=== PATIENT | male | born 2000 | race Caucasian/White ===

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

== ENCOUNTER → 2022-05-24 | Outpatient (CLI) | payer OTHER ==
[~2022-05-24] MED LIST changes: +BENADRYL ALLERG25 M5 PO; +KENALOG 0.5% CR15 GM T; +PREDNISONE50 MG PO
== END | disposition home or self-care (01) ==
LOC: RAD 11:45
PROVIDERS: ATTEND Nurse Practitioner Family
DX: R10.33 Periumbilical pain (principal)

== ENCOUNTER → 2022-06-08 | Outpatient (CLI) | payer OTHER | END | disposition home or self-care (01) | LOC: CT 08:00 | PROVIDERS: ATTEND Nurse Practitioner | DX: R52 Pain, unspecified (principal) ==

== ENCOUNTER 2023-07-21 22:34 | Emergency (ER) | payer OTHER ==
[~2023-07-21] VITALS: Ht 172.7 cm; Wt 68.0 kg
[2023-07-21] MEDS ORDERED: SODIUM CHLORIDE 0.9% 1,000 ML IV ONE (22:50)
[2023-07-21] MEDS ORDERED: Ketorolac Tromethamine 30 MG/ML VIAL IV ONE (22:50)
[2023-07-21 23:03] LABS: BASO % 0.3 % (0.0-1.0); EOS # 0.1 10*3/uL (0.0-0.4); EOS % 0.6 % (1.0-4.0); LYMPH # 2.9 10*3/uL (1.3-4.4); LYMPH % 25.3 % (27.0-41.0); MEAN CELL VOLUME 93.3 fl (80.0-94.0); MEAN CORPUSCULAR HGB 30.4 pg (27.0-31.0); MEAN CORPUSCULAR HGB CONC 32.6 g/dl (33.0-37.0); MEAN PLATELET VOLUME 8.9 fl (9.6-12.3); MONO # 1.2 10*3/uL (0.1-1.0); MONO % 10.4 % (3.0-9.0); NEUT # 7.3 10*3/uL (2.3-7.9); NEUT % 63.3 % (47.0-73.0); PLATELET COUNT AUTOMATED 251 10*3/uL (130-400); RED BLOOD COUNT 4.61 10*6/uL (4.50-5.90); RED CELL DISTRI WIDTH 11.8 % (0-14.5); WHITE BLOOD COUNT 11.5 10*3/uL (4.8-10.8)
[2023-07-21 23:24] LABS: ALKALINE PHOSPHATASE 85 U/L (46-116); BUN 15 mg/dl (9-23); CHLORIDE 103 mmol/L (98-107); LIPASE 31 U/L (12-53); POTASSIUM 3.5 mmol/L (3.4-5.1); SGPT/ALT 13 U/L (5-49); TOTAL PROTEIN 7.4 gm/dL (6.0-8.0)
[2023-07-21] MEDS ORDERED: Metoclopramide Hydrochloride 10 MG/2 ML AMP IV ONE (23:35)
[2023-07-21] MEDS ORDERED: diphenhydrAMINE hydrochloride 50 MG/ML VIAL IV ONE (23:35)
[2023-07-21] MEDS ORDERED: Tamsulosin Hydrochloride 0.4 MG CAP PO ONE (23:35)
[2023-07-22 00:29] LABS: BILIRUBIN Negative (Negative); BLOOD 3+ (Negative); CLARITY Clear (Clear); COLOR Yellow (Yellow); GLUCOSE Negative (Negative); KETONE 1+ (Negative); LEUKO ESTERASE Negative (Negative); NITRITE Negative (Negative); SPECIFIC GRAVITY >= 1.030 (1.001-1.030)
[2023-07-22 00:49] LABS: CALCIUM OXALATE CRYSTALS 2+; MUCOUS 1+; RBC 16-20 rbc/hpf (0-2)
[2023-07-22] MEDS ORDERED: REGLAN10 M1 PO (00:56)
[2023-07-22] MEDS ORDERED: MELOXICAM15 MG PO (00:56)
== END 2023-07-22 01:13 | disposition home or self-care (01) ==
LOC: ED 22:34
PROVIDERS: Internal Medicine
DX: N20.0 Calculus of kidney (principal); R11.2 Nausea with vomiting, unspecified; Z88.0 Allergy status to penicillin; Z88.1 Allergy status to other antibiotic agents; Z98.890 Other specified postprocedural states; Z87.442 Personal history of urinary calculi

== ENCOUNTER → 2025-04-17 | Outpatient (CLI) | payer OTHER ==
[~2025-04-17] MED LIST changes: +MELOXICAM15 MG PO; +REGLAN10 M1 PO
== END | disposition home or self-care (01) ==
LOC: MRI 16:27
PROVIDERS: ATTEND Internal Medicine Sports Medicine
DX: S83.511A Sprain of anterior cruciate ligament of right knee, initial encounter (principal); S83.206A Unspecified tear of unspecified meniscus, current injury, right knee, initial encounter; M25.461 Effusion, right knee; X58.XXXA Exposure to other specified factors, initial encounter; Y93.89 Activity, other specified; Y92.89 Other specified places as the place of occurrence of the external cause; Y99.8 Other external cause status